=== PATIENT | male | born 1960 | race Caucasian/White ===

== ENCOUNTER 2022-02-12 09:00 | Emergency (ER) | payer SELFPAY ==
[2022-02-12 09:13] VITALS: BMI 23.0
[2022-02-12] MEDS ORDERED: LORazepam 2 MG/ML SDV VIAL IM ONE (10:17)
[2022-02-12] MEDS ORDERED: HALOPERIDOL LACTATE 5 MG/ML IM ONE (10:17)
[2022-02-12 12:17] LABS: BASO % 0.4 % (0-2.0); EOS % 1.7 % (0-4.5); HEMATOCRIT 39.1 % (35.4-49); HEMOGLOBIN 13.2 GM/dL (11.7-16.9); LYMPH % 20.9 % (8-40); MCH 31.8 pg (25.7-33.7); MCHC 33.8 g/dl (32.0-35.9); MEAN CELL VOLUME 94.1 fl (80-96); MEAN PLT VOLUME 8.1 fl (7.5-11.1); MONO % 4.4 % (3.8-10.2); NEUT % 72.6 % (42.8-82.8); PLATELET COUNT 313 10^3/uL (134-434); RBC 4.15 M/mm3 (4.00-5.60); RDW 14.2 % (11.9-15.9); WHITE BLOOD COUNT 7.6 K/mm3 (4.0-10.0)
[2022-02-12 12:30] LABS: CHLORIDE 110 mmol/L (98-107); SODIUM 144 mmol/L (136-145)
[2022-02-12 12:31] LABS: CALCIUM 8.7 mg/dL (8.5-10.1)
[2022-02-12 12:32] LABS: ALBUMIN 3.4 g/dl (3.4-5.0); ANION GAP 3 MMOL/L (8-16); BLOOD UREA NITROGEN 7.5 mg/dL (7-18); CO2 31 mmol/L (21-32); GLUCOSE,RANDOM 129 mg/dL (74-106)
[2022-02-12 12:35] LABS: CREATININE 0.8 mg/dL (0.55-1.3); SGOT/AST 14 U/L (15-37)
[2022-02-12 12:36] LABS: BILIRUBIN,TOTAL 0.3 mg/dL (0.2-1); TOT PROT 6.5 g/dl (6.4-8.2)
[2022-02-12 12:38] LABS: ALK PHOS 78 U/L (45-117)
[2022-02-12 12:56] LABS: SGPT/ALT 23 U/L (13-61)
[2022-02-12 17:57] LABS: URINE APPEARANCE CLEAR; URINE BILIRUBIN NEGATIVE (NEGATIVE); URINE COLOR YELLOW; URINE GLUCOSE (UA) NEGATIVE (NEGATIVE); URINE KETONE NEGATIVE (NEGATIVE); URINE LEUK ESTERASE NEGATIVE (NEGATIVE); URINE NITRITE NEGATIVE (NEGATIVE); URINE PROTEIN NEGATIVE (NEGATIVE); URINE UROBILINOGEN 0.2 mg/dL (0.2-1.0)
[2022-02-12 18:22] LABS: COCAINE, UR NEGATIVE (NEGATIVE); METHADONE, UR NEGATIVE (NEGATIVE); OPIATES, URI NEGATIVE (NEGATIVE); PHENCYCLIDINE,URINE NEGATIVE (NEGATIVE); URINE AMPHETAMINES NEGATIVE (NEGATIVE); URINE BARBITURATES NEGATIVE (NEGATIVE); URINE BENZODIAZEPINES NEGATIVE (NEGATIVE)
[2022-02-13 08:48] VITALS: PULSE 56
[2022-02-13 14:25] VITALS: BP 118/69; TEMP 98.4
== END 2022-02-13 14:00 | disposition home or self-care (01) ==
LOC: JER 09:00
PROC: 3E023GC Introduction of Other Therapeutic Substance into Muscle, Percutaneous Approach (ICD-10-PCS; principal; 2022-02-12)
PROC: 3E023NZ Introduction of Analgesics, Hypnotics, Sedatives into Muscle, Percutaneous Approach (ICD-10-PCS; 2022-02-12)
DX: F32.A Depression, unspecified (principal); R45.850 Homicidal ideations
CPT/HCPCS: 36415; 80053; 80307; 81003; 83735; 84443; 85025; 87086; 93005; 93010; 99284-25